=== PATIENT | male | born 1955 | race Caucasian/White ===

== ENCOUNTER 2021-01-23 16:48 | Emergency (ER) | payer MEDICARE ==
[~2021-01-23] VITALS: Ht 162.6 cm; Wt 72.2 kg
[~2021-01-23 16:48] MED LIST: OXYC1TAB17 PO
[2021-01-23 16:50] VITALS: BP 162/101
[2021-01-23] MEDS ORDERED: HYDROcodone/APAP 5/325 TABLET PO ONE (17:30)
[2021-01-23] MEDS ORDERED: HYDROmorphone/PF 4 MG/ML, 1ML IM ONE (17:30)
[2021-01-23] MEDS ORDERED: HYDROcodone/APAP 5/325 TABLET ONE (17:51)
--- NOTE | 2021-01-23 18:37 | NUR ---
Patient/Caregiver given discharge instructions and they have confirmed that they understand the instructions. Patient ambulatory with steady gait.
== END 2021-01-23 18:43 | disposition home or self-care (01) ==
LOC: ED 18:30
DX: B35.6 Tinea cruris (principal); B02.9 Zoster without complications; M79.621 Pain in right upper arm
CPT/HCPCS: 99283